=== PATIENT | female | born 1960 | race Asian ===

== ENCOUNTER 2021-08-16 22:01 | Emergency (ER) | payer OTHER ==
[2021-08-16 22:13] VITALS: TEMP 97.8; BMI 28.3
[2021-08-16] MEDS ORDERED: FAMOTIDINE 20 MG/50 ML IVPB 20 MG/50 ML MG IVPB ONE ×2 (23:05→23:22)
[2021-08-16] MEDS ORDERED: MAG HYDROX/AL HYDROX/SIMETH 30 ML UNIT-DOSE CUP PO ONE (23:05)
[2021-08-16] MEDS ORDERED: ACETAMINOPHEN 1000 MG/100 ML VIAL IVPB ONE (23:05)
[2021-08-16] MEDS ORDERED: SODIUM CHLORIDE 0.9% 500 ML INFUS.BAG IV ONE (23:05)
[2021-08-16] MEDS ORDERED: MAG HYDROX/AL HYDROX/SIMETH 30 ML UNIT-DOSE CUP ONE ×2 (23:22→23:47)
[2021-08-16] MEDS ORDERED: ACETAMINOPHEN INJECTION 100 ML IVPB ONE (23:22)
[2021-08-17 00:13] LABS: BASO % 0.5 % (0-2.0); HEMATOCRIT 37.3 % (32.4-45.2); HEMOGLOBIN 12.7 GM/dL (10.7-15.3); LYMPH % 30.1 % (8-40); MCH 30.4 pg (25.7-33.7); MEAN CELL VOLUME 89.6 fl (80-96); MEAN PLT VOLUME 8.6 fl (7.5-11.1); NEUT % 61.4 % (42.8-82.8); PLATELET COUNT 319 10^3/uL (134-434); RBC 4.16 M/mm3 (3.60-5.2); RDW 13.8 % (11.6-15.6)
[2021-08-17 00:30] LABS: INR 0.96 (0.83-1.09)
[2021-08-17 00:32] LABS: ACTIVATED PTT 24.9 SECONDS (25.2-36.5)
[2021-08-17 01:15] LABS: PROTHROMBIN TIME (PATIENT) 10.8 SEC (9.7-13.0)
[2021-08-17 02:09] LABS: CREATININE 0.8 mg/dL (0.55-1.3); GLUCOSE,RANDOM 388 mg/dL (74-106)
[2021-08-17 02:10] LABS: ALBUMIN 3.6 g/dl (3.4-5.0); BILIRUBIN,TOTAL 0.5 mg/dL (0.2-1); CALCIUM 8.9 mg/dL (8.5-10.1); CHLORIDE 103 mmol/L (98-107); CO2 28 mmol/L (21-32); SODIUM 137 mmol/L (136-145); TOT PROT 7.2 g/dl (6.4-8.2)
[2021-08-17 02:11] LABS: ALK PHOS 99 U/L (45-117); SGOT/AST 21 U/L (15-37); SGPT/ALT 29 U/L (13-61)
[2021-08-17] MEDS ORDERED: INSULIN REGULAR HUMAN 100 UNITS/ML *VIAL SQ ONE (02:35)
[2021-08-17 02:56] VITALS: BP 155/78; PULSE 82
[2021-08-17 12:31] LABS: LIPASE 65 U/L (73-393)
== END 2021-08-17 04:17 | disposition home or self-care (01) ==
LOC: JER 22:01
PROC: 3E033GC Introduction of Other Therapeutic Substance into Peripheral Vein, Percutaneous Approach (ICD-10-PCS; principal; 2021-08-16)
DX: R10.13 Epigastric pain (principal)
CPT/HCPCS: 36415; 74174-TC; 80053; 82962; 83690; 85025; 85610; 85730; 86850; 86900; 86901; 96365; 96375; 99285-25; J0131

== ENCOUNTER 2023-08-14 10:20 | Emergency (ER) | payer OTHER ==
[2023-08-14 10:29] VITALS: BMI 25.7
[2023-08-14] MEDS ORDERED: ACETAMINOPHEN 1000 MG/100 ML BAG IVPB ONE (11:23)
[2023-08-14] MEDS ORDERED: FAMOTIDINE 20 MG/50 ML IVPB 20 MG/50 ML MG IVPB ONE ×2 (11:23→11:32)
[2023-08-14] MEDS ORDERED: LACTATED RINGERS SOLUTION 1000 ML INFUS.BAG IV ONE (11:23)
[2023-08-14] MEDS ORDERED: ACETAMINOPHEN INJECTION 100 ML IVPB ONE (11:52)
[2023-08-14 12:04] LABS: PH,URINE 5.5 (5.0-8.0); URINE APPEARANCE CLEAR; URINE BILIRUBIN NEGATIVE (NEGATIVE); URINE COLOR YELLOW; URINE GLUCOSE (UA) 3+ (NEGATIVE); URINE KETONE NEGATIVE (NEGATIVE); URINE LEUK ESTERASE NEGATIVE (NEGATIVE); URINE NITRITE NEGATIVE (NEGATIVE); URINE PROTEIN NEGATIVE (NEGATIVE); URINE UROBILINOGEN 0.2 mg/dL (0.2-1.0)
[2023-08-14 12:07] LABS: BASO % 0.7 % (0-2.0); HEMATOCRIT 39.7 % (32.4-45.2); HEMOGLOBIN 13.4 GM/dL (10.7-15.3); LYMPH % 25.7 % (8-40); MCH 30.9 pg (25.7-33.7); MCHC 33.7 g/dl (32.0-36.0); MEAN CELL VOLUME 91.7 fl (80-96); MEAN PLT VOLUME 8.2 fl (7.5-11.1); MONO % 4.9 % (3.8-10.2); NEUT % 66.7 % (42.8-82.8); PLATELET COUNT 358 10^3/uL (134-434); RBC 4.33 M/mm3 (3.60-5.2); RDW 13.8 % (11.6-15.6)
[2023-08-14 12:27] LABS: POTASSIUM 4.1 mmol/L (3.5-5.1)
[2023-08-14 12:30] LABS: ALBUMIN 3.8 g/dl (3.4-5.0); CALCIUM 9.2 mg/dL (8.5-10.1); MAGNESIUM 1.7 mg/dL (1.8-2.4)
[2023-08-14 12:34] LABS: BILIRUBIN,TOTAL 0.5 mg/dL (0.2-1); TOT PROT 7.7 g/dl (6.4-8.2)
[2023-08-14] MEDS ORDERED: MAGNESIUM SULF 50% (8.12 MEQ/2 ML-1 GM VIAL) IVPB ONE (13:56)
[2023-08-14] MEDS ORDERED: MAGNESIUM 1GM/D5W - 1 GM/100 ML IVPB IVPB ONE (14:02)
[2023-08-14 14:47] VITALS: RESP 20
[2023-08-14 16:09] VITALS: BP 165/88; PULSE 91; TEMP 97.2
== END 2023-08-14 16:25 | disposition home or self-care (01) ==
LOC: JER 10:20
PROC: 3E033GC Introduction of Other Therapeutic Substance into Peripheral Vein, Percutaneous Approach (ICD-10-PCS; principal; 2023-08-14)
PROC: 3E033NZ Introduction of Analgesics, Hypnotics, Sedatives into Peripheral Vein, Percutaneous Approach (ICD-10-PCS; 2023-08-14)
PROC: 3E033GC Introduction of Other Therapeutic Substance into Peripheral Vein, Percutaneous Approach (ICD-10-PCS; 2023-08-14)
DX: R10.84 Generalized abdominal pain (principal); R11.2 Nausea with vomiting, unspecified; R68.81 Early satiety; R19.7 Diarrhea, unspecified; Z20.822 Contact with and (suspected) exposure to COVID-19
CPT/HCPCS: 0241U-QW; 36415; 71045-TC-FY; 74177-TC; 80053; 81003; 82962; 83690; 83735; 84484; 85025; 87086; 93005; 93010; 99285-25; Q9967